=== PATIENT | male | born 1950 | race Caucasian/White ===

== ENCOUNTER 2023-03-03 21:47 | Emergency (ER) | payer BC ==
[~2023-03-03] VITALS: Ht 160 cm; Wt 59.0 kg
[2023-03-03 22:00] VITALS: BP_SYST 133
[2023-03-04] MEDS ORDERED: ASPIRIN 81 MG TAB.CHEW PO ONE (00:30)
[2023-03-04 01:16] LABS: HEMOGLOBIN 13.8 g/dL (14.0-18.0); MEAN CORPUSCULAR HGB CONC 33 % (32-36)
[2023-03-04 01:27] LABS: ALANINE AMINOTRANSFERASE 17 U/L (12-78); ALBUMIN 3.9 g/dL (3.4-4.8); ANION GAP 9 (5-15); ASPARTATE AMINOTRANSFERASE 23 U/L (10-37); CALCIUM 9.5 mg/dL (8.4-11.0); CHLORIDE 101 mmol/L (98-107); GFR AFRICAN AMERICAN 107 mL/min (>90); GLUCOSE 180 mg/dL (70-99); TOTAL BILIRUBIN 1.1 mg/dL (0.0-1.0); UREA NITROGEN, BLOOD 22 mg/dL (8-21)
[2023-03-04 01:32] LABS: BASOPHILS % (AUTO) 0.3 % (0.0-2.0); EOSINOPHILS # (AUTO) 0.1 K/uL (0.0-0.4); EOSINOPHILS % (AUTO) 0.7 % (0.0-4.0); HEMATOCRIT 41.5 % (36-54); LYMPHOCYTES % (AUTO) 10.7 % (20.5-51.5); MEAN CORPUSCULAR HEMOGLOBIN 33 pg (27-31); MEAN CORPUSCULAR VOLUME 98 fL (79.0-98.0); MONOCYTES # (AUTO) 1.2 K/uL (0.0-1.0); MONOCYTES % (AUTO) 12.3 % (1.7-9.3); NEUTROPHILS # (AUTO) 7.4 K/uL (1.8-7.7); PLATELET COUNT (AUTO) 182 K/uL (130-430); RED BLOOD CELL COUNT(AUTO) 4.23 MIL/uL (4.2-6.2); RED CELL DISTRIBUTION WIDTH 13.2 % (9.0-15.0); WHITE BLOOD COUNT (AUTO) 9.8 K/uL (4.8-10.8)
[2023-03-04] MEDS ORDERED: NAPR-688 PO (02:31)
[2023-03-04] MEDS ORDERED: GUAI100S14 PO (02:31)
[2023-03-04] MEDS ORDERED: ROBAC PO (02:31)
[2023-03-04 03:01] VITALS: BP_SYST 133
== END 2023-03-04 03:01 | disposition home or self-care (01) ==
LOC: SED 21:47
DX: R07.9 Chest pain, unspecified (principal); R05.9 Cough, unspecified; Z79.899 Other long term (current) drug therapy
CPT/HCPCS: 36415; 71045; 80053; 83880; 84484; 85025; 93005; 99285